=== PATIENT | female | born 1950 | race Hispanic/Latino ===

== ENCOUNTER 2024-06-05 09:27 | Emergency (ER) | payer MEDICARE, BC ==
[2024-06-05] VITALS (7 sets, daily range): BP systolic 137–175; BP diastolic 74–92
[~2024-06-05] VITALS: Ht 167.6 cm; Wt 58.9 kg
[2024-06-05] MEDS ORDERED: NITROGLYCERIN 0.4 MG/TAB SL ONE (09:55)
[2024-06-05] MEDS ORDERED: ASPIRIN 81 MG/TAB PO ONE (09:55)
[2024-06-05 10:19] LABS: BASO% 0.9 % (0-3); EOS% 2.6 % (0-8); HEMATOCRIT 42.9 % (37.0-47.0); HEMOGLOBIN 13.8 g/dl (12.0-16.0); IMMATURE GRANULOCYTES 0.2 % (0.0-5.0); LYMPH% 27.7 % (15-41); MEAN CELL VOLUME 91.5 fL CALC (80.0-100.0); MEAN CORPUSCULAR HGB 29.4 pG CALC (26.0-32.0); MEAN CORPUSCULAR HGB CONC 32.2 g/dL CAL (32.0-36.0); MONO% 7.5 % (2-13); NEUT# 2.87 thou/uL (2.00-7.15); NEUT% 61.1 % (42-76); RED BLOOD COUNT 4.69 mill/uL (4.20-5.60)
[2024-06-05 10:35] LABS: PROTHROMBIN TIME 9.9 SECONDS (9.0-12.5)
[2024-06-05 10:39] LABS: D-DIMER 0.22 mg/L (0.19-0.60)
[2024-06-05 10:59] LABS: ALBUMIN 4.7 g/dL (3.2-5.0); ALKALINE PHOSPHATASE 58 u/l (38-126); ANION GAP 9 (6-22 (CALC)); BILIRUBIN, TOTAL 0.7 mg/dL (0.02-1.3); BUN 12 mg/dL (8-23); BUN/CREATININE RATIO 13 (12-20 (CALC)); CARBON DIOXIDE 26 mmol/l (22-30); CHLORIDE 109 mmol/l (95-108); CREATININE 0.9 mg/dL (0.5-1.0); ESTIMATED GFR 67 ML/MIN (>=90 (CALC)); POTASSIUM 3.9 mmol/l (3.5-5.1); SGOT/AST 36 u/l (9-36); SODIUM 140 mmol/l (137-146); TOTAL PROTEIN 7.7 g/dL (6.3-8.2)
== END 2024-06-05 11:45 | disposition home or self-care (01) ==
LOC: ED 09:27
PROVIDERS: Family Medicine
DX: R07.9 Chest pain, unspecified (principal); I10 Essential (primary) hypertension; I25.10 Atherosclerotic heart disease of native coronary artery without angina pectoris